=== PATIENT | female | born 2000 | race African-American/Black ===

== ENCOUNTER 2021-03-10 21:47 | Observation (INO) | payer MEDICAID ==
[~2021-03-10] VITALS: Ht 152.4 cm; Wt 48.6 kg
[2021-03-10 22:58] LABS: ALBUMIN 4.2 gm/dL (3.5-5.0); BILIRUBIN,TOTAL 0.3 mg/dL (0.0-1.0); CALCIUM 9.7 mg/dL (8.4-10.2); CREATININE, serum 0.58 (0.52-1.25); POTASSIUM 4.4 mmol/L (3.4-5.0)
[2021-03-10 23:35] LABS: MEAN CELL VOLUME 62 fl (80.0-100.0); MEAN CORPUSCULAR HGB CONC 24 g/dl (33.0-37.0); MEAN PLATELET VOLUME 8.3 fl (7.4-10.4); PLATELET COUNT 999 K/mm3 (130-400); RED BLOOD COUNT 3.36 M/mm3 (4.10-5.30); REDCELL DISTRIBUTION WIDTH-CV 32.4 % (11.5-14.5)
[2021-03-10 23:38] LABS: HEMATOCRIT 20.7 % (37.0-47.0); MEAN CORPUSCULAR HEMOGLOBIN 15 pg (27.0-31.0)
[2021-03-11] VITALS (13 sets, daily range): BP systolic 87–111; BP diastolic 50–72; PULSE 65–84; TEMP 97.8–98.7
[2021-03-11 00:26] LABS: BAND 4 % (0-10); HYPOCHROMIA 1+; LYMPHOCYTE 63 % (20.0-51.0); NEUTROPHILS 31 % (42.0-75.2)
[2021-03-11 00:28] LABS: ANISOCYTOSIS 2+; POIKILOCYTOSIS 2+; TARGET CELLS 1+
[2021-03-11 00:29] LABS: OVALOCYTES 1+
[2021-03-11 00:38] LABS: RETIC # 0.02 M/mm3 (0.02-0.16); RETIC % 0.5 % (0.5-3.52)
[2021-03-11 01:13] LABS: IRON,SERUM 19 ug/dL (35-150)
[2021-03-11 01:22] LABS: TOTAL IRON BINDING CAPACITY 502 ug/dL (265-497)
--- NOTE | 2021-03-11 03:09 | NUR ---
Madan is a new admit this morning for vaginal bleeding. She is alert awake and oriented x4. She dont have any complain. She said this is the first time that she is in the hospital. She is very cooperative and aware that she will be getting 2Units of blood. Blood started around 0250 and tolerated the transfusions. XCall light is within reach. Continue to follow.
--- NOTE | 2021-03-11 05:58 | NUR ---
Called OB consult to Daniel Campbell at [phone].
[2021-03-11 08:32] LABS: BASO % 1.1 % (0.0-2.0); EOS # 0.1 (0.0-0.7); EOS % 1.9 % (0-4.0); GRAN # 1.3 (1.4-6.5); GRAN % 34.7 % (42.2-75.2); LYMPH # 2.1 (1.2-3.4); LYMPH % 54.6 % (20.0-51.0); MEAN CORPUSCULAR HGB CONC 28 g/dl (33.0-37.0); MEAN PLATELET VOLUME 8.3 fl (7.4-10.4); MONO # 0.3 (0.1-0.6); MONO % 7.7 % (1.7-9.3); RED BLOOD COUNT 4.17 M/mm3 (4.10-5.30)
[2021-03-11 08:48] LABS: HEMATOCRIT 28.4 % (37.0-47.0); HEMOGLOBIN 7.8 g/dl (12.5-16.0); MEAN CELL VOLUME 68 fl (80.0-100.0); MEAN CORPUSCULAR HEMOGLOBIN 19 pg (27.0-31.0)
[2021-03-11 08:48] LABS: CALCIUM 8.6 mg/dL (8.4-10.2); CREATININE, serum 0.49 (0.52-1.25); POTASSIUM 3.9 mmol/L (3.4-5.0)
[2021-03-11 08:49] LABS: PLATELET COUNT 781 K/mm3 (130-400)
--- NOTE | 2021-03-11 10:04 | NUR ---
Pt appearance relaxed upon entry, able to vocalize needs and converse freely. Pt denies vaginal bleeding upon assessment. Pt had hypoactive bowel sounds, denies having breakfast at this time. Call light within reach, mother present at this time. Apple juice given as mix for Miralax. Pt educated on morning medications and uses.
--- NOTE | 2021-03-11 11:52 | NUR ---
First visit from the satellite dish technician. No needs right now.
[2021-03-11] MEDS ORDERED: FERROUS SU325 MG/TAB PO (15:27)
--- NOTE | 2021-03-11 16:13 | NUR ---
DISCHARGE APPT MADE AT [facility] FOR PT, REPORTED PT TO CALL [facility] FOR FOLLOW UP LABS AND APPT. EDUCATED ON IRON PRESCRIPTION, CALLED JUSTEN SINHA FOR WORK RELEASE NOTE. IV REMOVED, TELE REMOVED, NO QUESTIONS AT THIS TIME.
--- NOTE | 2021-03-11 16:29 | NUR ---
OBTAINED WORK NOTE FOR PT, GIVEN TO PT AND PT ESCORTED OUT.
== END 2021-03-11 16:20 | disposition home or self-care (01) ==
LOC: COL.ER 21:47 → MEDICAL 03-11 00:15
PROVIDERS: Emergency Medicine; Nurse Practitioner Primary Care; Student in an Organized Health Care Education/Training Program; ADMIT Student in an Organized Health Care Education/Training Program
DX: D50.9 Iron deficiency anemia, unspecified (principal); D47.3 Essential (hemorrhagic) thrombocythemia; D61.818 Other pancytopenia; K59.00 Constipation, unspecified
CPT/HCPCS: 99223-AI; G0378; P9016

== ENCOUNTER 2023-01-12 13:27 | Emergency (ER) | payer OTHER, MEDICAID ==
[~2023-01-12] VITALS: Ht 152.4 cm; Wt 56.8 kg
[~2023-01-12 13:27] MED LIST: FERROUS SU325 MG/TAB PO
[2023-01-12 13:33] VITALS: BP 113/68; PULSE 73; TEMP 98.3
== END 2023-01-12 14:00 | disposition home or self-care (01) ==
LOC: COL.ER 13:27
DX: G56.01 Carpal tunnel syndrome, right upper limb (principal); Z28.310 Unvaccinated for COVID-19

== ENCOUNTER 2024-03-04 10:48 | Emergency (ER) | payer MEDICAID ==
[~2024-03-04] VITALS: Ht 152.4 cm; Wt 60.0 kg
[~2024-03-04 10:48] MED LIST changes: +IBU800 M1 PO
[2024-03-04 10:55] VITALS: TEMP 98.5
[2024-03-04 12:30] VITALS: BP 100/68; PULSE 70
== END 2024-03-04 12:30 | disposition home or self-care (01) ==
LOC: COL.ER 10:48
DX: M25.531 Pain in right wrist (principal)

== ENCOUNTER → 2024-05-11 | Outpatient (CLI) | payer OTHER, MEDICAID ==
[~2024-05-11] MED LIST changes: +Gadoterate 5 ML VIAL IV ONE; +Iohexol 300 - 10 ML VIAL IV ONE
== END ==
LOC: COL.RAD 09:10
DX: M24.131 Other articular cartilage disorders, right wrist (principal); M67.431 Ganglion, right wrist
CPT/HCPCS: A9575; Q9967